=== PATIENT | female | born 1985 | race Two or more races ===

== ENCOUNTER 2024-04-05 09:15 | Outpatient (RCR) | payer BC, SELFPAY ==
--- NOTE | 2024-04-04 09:15 | XR_ITS ---
Examination: Nuclear medicine thyroid uptake and scan Exam date and time: April 04, 2024 0854 hours INDICATIONS: Elevated TSH on laboratory examination 4 months ago with mood alterations TECHNIQUE AND FINDINGS: Oral administration 28 uCi [id number] 24 hour 6 hour uptake values recorded and anterior oblique scans obtained 6 hour uptake 27.2% normal range 6-24% 24 hour uptake 37.8% normal range 10-36% Normal thyroid homogeneous scans IMPRESSION: Mildly elevated thyroid uptake values
== END 2024-04-10 23:59 | disposition home or self-care (01) ==
LOC: SNUC 09:15
PROVIDERS: PCP Family Medicine; Referring Provider Family Medicine; Visit Provider Family Medicine
DX: R94.6 Abnormal results of thyroid function studies (principal)
CPT/HCPCS: 78013; A9516